=== PATIENT | female | born 1950 | race Caucasian/White ===

== ENCOUNTER 2019-02-23 09:09 | Observation (INO) | payer MEDICARE, BC ==
--- NOTE | 2019-02-23 11:11 | CR ---
[id number] RAD/RAD Chest PA And Lateral EXAM: FRONTAL AND LATERAL CHEST INDICATION: COUGH. COMPARISON: December 25, 2016. DISCUSSION: Mild patchy infiltrates scattered throughout the right lung compatible with pneumonia. Unless clinically indicated sooner, a 6 week follow-up would be suggested to ensure resolution. Left lung is clear and heart is normal in size. IMPRESSION: 1. Mild scattered right lung infiltrates. Casey Perez MD 02/23/19 1109 Thank you for allowing us to participate in the care of your patient.
--- NOTE | 2019-02-23 11:14 | CT ---
[id number] CT/CT Head WO IV EXAM: CT Head WO IV CLINICAL DATA: SYNCOPE. COMPARISON STUDY: None FINDINGS: No intracranial hemorrhage, extra-axial fluid collection, mass, or acute ischemia. Generalized parenchymal atrophy with scattered areas of nonspecific white matter disease, commonly seen as sequela of chronic microvascular ischemia. Soft tissues are unremarkable. Paranasal sinuses and mastoid air cells are clear. IMPRESSION: No acute intracranial findings. German Rowland DO 02/23/19 1112 Thank you for allowing us to participate in the care of your patient.
[2019-02-23 12:04] LABS: ANION GAP 12.4 mmol/L (5-15)
[2019-02-23] MEDS ORDERED: Lidocaine 2% 100 MG/5 ML Syringe IVPUSH PRN (14:09)
[2019-02-23] MEDS ORDERED: EPINEPHrine 1:10,000 1 MG/10 ML Syringe IVPUSH PRN (14:09)
[2019-02-23] MEDS ORDERED: Nitroglycerin 0.4 MG Tab.SL SL PRN (14:09)
[2019-02-23] MEDS ORDERED: Atropine 0.1 MG/ML 10 ML Syringe IVPUSH PRN (14:09)
[2019-02-23] MEDS ORDERED: Sodium Chloride 0.9% 10 ML Syringe FLUSH PRN (14:24)
[2019-02-23] MEDS ORDERED: Sodium Chloride 0.9% 50 ML IV SCH (14:30)
[2019-02-23] MEDS: cefTRIAXone 1 GM Vial IVPUSH SCH (15:25)
[2019-02-23] MEDS: Sodium Chloride 0.9% 1,000 ML IV SCH (15:27)
[2019-02-23] MEDS: Azithromycin 500 MG in Sodium Chloride 0.9% 250 ML IV SCH (15:35)
[2019-02-23] MEDS: Aspirin 325 MG Tab.EC PO SCH (20:14)
[2019-02-24] MEDS: Sodium Chloride 0.9% 1,000 ML IV SCH ×2 (04:57→20:24)
--- NOTE | 2019-02-24 13:13 | US ---
[id number] US/US Carotid Bilateral EXAM: US Carotid Bilateral CLINICAL DATA: Syncope COMPARISON: Correlation is made with the exam of June 04, 2017 FINDINGS: The internal to common carotid ratio on the right is 1.0. The internal to common carotid ratio on the left is 1.5. Vertebral flow on both sides is antegrade. Peak systolic velocity of the right internal carotid artery is 75 cm/s. Peak systolic velocity of the left internal carotid artery is 70 cm/s. Plaque is seen bilaterally IMPRESSION: NO SIGNIFICANT NARROWING ON EITHER SIDE. BILATERAL PLAQUE Hugh Gusman MD 02/24/19 1505 Thank you for allowing us to participate in the care of your patient.
[2019-02-24] MEDS: cefTRIAXone 1 GM Vial IVPUSH SCH (14:35)
[2019-02-24] MEDS: Azithromycin 500 MG in Sodium Chloride 0.9% 250 ML IV SCH (14:43)
[2019-02-24] MEDS: Aspirin 325 MG Tab.EC PO SCH (20:07)
[2019-02-25] MEDS: cefTRIAXone 1 GM Vial IVPUSH SCH ×2 (11:46→14:15)
[2019-02-25] MEDS: Azithromycin 500 MG in Sodium Chloride 0.9% 250 ML IV SCH ×2 (11:48→14:16)
--- NOTE | 2019-02-26 08:38 | PN ---
02/24/2019 PATIENT NAME: KIESHA SMITH SUBJECTIVE: This is a 68-year-old female who was admitted to the hospital yesterday 02/23/2019 following a syncopal episode. The patient has had a cough for the past month. Yesterday morning, she took a dose of her 's cough medicine with codeine an hour and half later, had a syncopal episode where she actually lost control of her bowel and was incontinent of stool. The patient was admitted for further observation and diagnostic workup. She was found to have scattered right lung infiltrates. She is being covered with azithromycin as well as ceftriaxone for community-acquired pneumonia. Lab work including CBC and a CMP were drawn with all values fairly normal. Nothing outstandingly abnormal. The white count was normal. Her hemoglobin was normal at 13.5. The chemistry panel was completely acceptable. A 12-lead EKG was performed, which shows a normal sinus rhythm with a possible left posterior fascicular block. Ventricular rate is 78 beats per minute. Good R-wave progression through the precordial leads. No ectopics. There are no acute ST-T wave changes. CT of the head was performed which showed no intracranial hemorrhage, extra- axial fluid collection, mass, or acute ischemia. The general parenchymal atrophy with scattered areas of nonspecific white matter disease, commonly seen as sequela of chronic microvascular ischemia. Soft tissues are unremarkable. Paranasal sinuses and mastoid air cells are clear. There was no acute intracranial findings found on the CT scan. The patient is being treated with intravenous fluids of normal saline at 75 mL an hour. She is feeling well. We do plan to keep her 1 more day for observation and another day of intravenous IV antibiotics. OBJECTIVE: VITAL SIGNS: Temp is 97.8, pulse is 76, respirations 16, blood pressure 118/80, oxygen saturation is 95% on room air. SKIN: Warm and dry to touch. CARDIAC: Reveals S1, S2 to be normal. Rate and rhythm are regular. No murmur, click, or gallop is auscultated. LUNGS: Some scattered rhonchi and rales with expiratory wheezing, which is mild. ABDOMEN: Soft, nontender. Bowel sounds present in all 4 quadrants. EXTREMITIES: There is no pedal edema. IMPRESSION: 1. Diffuse scattered right lower lobe infiltrates consistent with community- acquired pneumonia. She will continue on IV ceftriaxone as well as azithromycin as recommended per CAP guidelines. She will also continue on intravenous fluids. 2. No labs were performed today due to the fact that they were all normal yesterday with low clinical suspicion of any changes today. 3. Syncopal episode with bowel incontinence. This etiology is still fairly unclear to me, although it may be secondary to weakness that she was experiencing from her pneumonia. I will get a carotid ultrasound scheduled for today with results pending. She will have an echocardiogram tomorrow morning. PLAN: To discharge her from the hospital tomorrow to home with continuation of oral antibiotics for a total of 10 days. The patient is agreeable with this plan of care and wishes to proceed. The patient is normally in good general health with only taken aspirin at home. /[id number]/MODL
== END 2019-02-25 15:41 | disposition home or self-care (01) ==
LOC: KA.MS 09:09
DX: R91.8 Other nonspecific abnormal finding of lung field (principal); R55 Syncope and collapse; R15.9 Full incontinence of feces; J06.9 Acute upper respiratory infection, unspecified; Z79.82 Long term (current) use of aspirin
CPT/HCPCS: 70450; 71046; 80053; 84443; 85025; 87040; 93005; 93306; 93880; 96361; 96365; 96366; 96375; 96376; A9270-GY; G0378; J0456; J0696; J7030; J7050

== ENCOUNTER 2019-10-04 14:19 | Observation (INO) | payer MEDICARE, BC ==
[2019-10-04 15:04] LABS: ANION GAP 14.7 mmol/L (5-15); CHLORIDE,CL 102 mmol/L (98-115); SODIUM,NA 140 mmol/L (136-145)
--- NOTE | 2019-10-04 15:18 | CR ---
[id number] RAD/RAD Chest PA And Lateral EXAM: RAD Chest PA And Lateral INDICATION: EPIGASTRIC PAIN. COMPARISON: February 23, 2019. DISCUSSION: Cardiomediastinal silhouette is normal in size and contour. No infiltrate, effusion, pneumothorax, or edema. Pulmonary hyperinflation. IMPRESSION: No acute cardiopulmonary abnormality. German Rowland DO 10/04/19 1517 Thank you for allowing us to participate in the care of your patient.
[2019-10-04] MEDS ORDERED: Sodium Chloride 0.9% 10 ML Syringe FLUSH PRN (16:35)
[2019-10-04] MEDS ORDERED: Atropine 0.1 MG/ML 10 ML Syringe IVPUSH PRN (16:44)
[2019-10-04] MEDS ORDERED: Nitroglycerin 0.4 MG Tab.SL SL PRN (16:44)
[2019-10-04] MEDS ORDERED: Lidocaine 2% 100 MG/5 ML Syringe IVPUSH PRN (16:44)
[2019-10-04] MEDS ORDERED: EPINEPHrine 1:10,000 1 MG/10 ML Syringe IVPUSH PRN (16:44)
[2019-10-05] MEDS: Omeprazole 20 MG Cap.CR PO SCH ×2 (07:41→09:25)
[2019-10-05] MEDS ORDERED: Aspirin 325 MG Tab.EC PO SCH (09:00)
--- NOTE | 2019-10-06 21:01 | DISCH ---
BRIEF SUMMARY OF REASON FOR ADMISSION: This is a 69-year-old female who was admitted to the hospital on 10/04/2019 with epigastric pain to rule out OH. Her initial troponin I in the clinic was 0.08. When it was repeated, it was 0.07. Serial Troponins have been 0.07 and 0.06 respectively. Her EKG did not show any acute changes; however, she was tachycardic with a ventricular rate of 102. Chest x-ray was normal. The remainder of her lab work was fairly unremarkable. Amylase and lipase were normal. The patient has been comfortable while she has been in the hospital. She is anxious to go home. I have her scheduled for an upper GI endoscopy (esophagogastroduodenoscopy) on October 12, [address] Negro Ryan. PHYSICAL EXAM ON DISCHARGE: VITAL SIGNS: Temp is 96.9, pulse 103, respirations 18, blood pressure 128/84, and O2 saturation is 96%. SKIN: Warm and dry to touch. CARDIAC: Reveals S1, S2 to be normal. Rate and rhythm are regular. No murmur, click, or gallop is auscultated. LUNGS: Clear without rales, wheezes, or rhonchi. ABDOMEN: Soft. She does have some mild epigastric discomfort. Bowel sounds are present in all four quadrants. EXTREMITIES: There is no pedal edema. IMPRESSION: Epigastric pain with elevated initial troponin. She did rule out for OH in the hospital. She may need further cardiac workup. In the meantime, we will get an esophagogastroduodenoscopy on October 12, [address] with Dr. Negro Ryan. She was instructed to continue her aspirin therapy. She takes an aspirin 325 mg daily. She was also advised to take omeprazole 20 mg daily on a regular basis. Up until this point, she has been using it on a p.r.n. basis. /[id number]/MODL
== END 2019-10-05 09:29 | disposition home or self-care (01) ==
LOC: KA.OC 14:19 → KA.MS 16:41
DX: R10.13 Epigastric pain (principal); K21.9 Gastro-esophageal reflux disease without esophagitis; R79.89 Other specified abnormal findings of blood chemistry; Z79.82 Long term (current) use of aspirin; Z79.899 Other long term (current) drug therapy; Z91.09 Other allergy status, other than to drugs and biological substances; Z20.828 Contact with and (suspected) exposure to other viral communicable diseases
CPT/HCPCS: 36415; 71046; 80053; 82150; 83690; 84484; 85025; 93005; A9270-GY; G0378; U0002

== ENCOUNTER 2019-10-26 06:51 | Day surgery (SDC) | payer MEDICARE, BC ==
[~2019-10-26 06:51] MED LIST: Propofol 200 MG/20 ML SDV ONE
[2019-10-26] MEDS ORDERED: Propofol 200 MG/20 ML SDV IV ONE (06:52)
[2019-10-26] MEDS ORDERED: Sodium Chloride 0.9% 10 ML Syringe FLUSH PRN (07:00)
[2019-10-26] MEDS: Lactated Ringers 1,000 ML IV SCH (07:49)
--- NOTE | 2019-10-26 08:17 | PCM.PN ---
- General Info Date of Service: 10/26/19 - Review of Systems Systems Review Comment:: 69-year-old female referred for EGD. She has a history of recurring episodes of nausea. She also has a history of symptoms of acid reflux. She denies symptoms of dysphasia. She has been intermittently taking omeprazole. The patient is medically stable to proceed today. Her recent history and physical is reviewed and no significant changes are noted. I have discussed the proposed upper endoscopy with the patient. She agrees to proceed excepting risks. - Patient Data Vitals - Most Recent: Last Vital Signs Temp Pulse 85 10/26/19 07:00 Resp 16 10/26/19 07:00 BP 158/91 H 10/26/19 07:00 Pulse Ox 98 10/26/19 07:00 Weight - Most Recent: 73.936 kg Med Orders - Current: Current Medications Lactated Ringer's (Ringers, Lactated) 1,000 mls @ 50 mls/hr IV ASDIRECTED [facility] Last Admin: 10/26/19 07:49 Dose: 50 mls/hr Documented by: Sodium Chloride (Saline Flush) 10 ml FLUSH Q8HR PRN PRN Reason: keep vein open Discontinued Medications Propofol (Diprivan 20 Ml) Confirm Administered Dose 400 mg .ROUTE .STK-MED ONE Stop: 10/26/19 06:28 Sepsis Event Note - Focused Exam Vital Signs: Vital Signs Pulse Resp BP Pulse Ox 10/26/19 07:00 85 16 158/91 H 98 Date Exam was Performed: 10/26/19 Time Exam was Performed: 08:15 - Problem List Review Problem List Initiated/Reviewed/Updated: Yes - My Orders Last 24 Hours: My Active Orders 10/25/19 11:47 Resuscitation Status Routine 10/26/19 07:00 Peripheral IV Care [RC] . DIRECTED Lactated Ringers [Ringers, Lactated] 1,000 ml IV ASDIRECTED Sodium Chloride 0.9% [Saline Flush] 10 ml FLUSH Q8HR PRN Peripheral IV Insertion Adult [OM.PC] Routine 10/26/19 07:30 Patient to Empty Bladder [RC] ASDIRECTED 10/26/19 08:00 Verify Patient Consent Obtain [RC] ASDIRECTED Nothing Per Oral Diet [DIET] - Assessment Assessment:: Nausea Acid reflux - Plan Plan:: EGD
--- NOTE | 2019-10-26 08:52 | PCM.OPNOTE ---
- General Post-Op/Procedure Note Date of Surgery/Procedure: 10/26/19 Operative Procedure(s): EGD with Biopsy Findings: Hiatal Hernia with reflux esophagitis and possible Murguia's Esophagus Pre Op Diagnosis: Nausea. Acid Reflux Post-Op Diagnosis: Hiatal Hernia. Reflux Esophagitis Anesthesia Technique: [facility] [place] Surgeon: Negro Ryan Pathology: Biopsies of Gastric Antrum and Distal Esophagus EBL in mLs: 3 Complications: None Condition: Good
--- NOTE | 2019-10-26 11:53 | OR ---
DATE OF SURGERY: 10/26/2019 SURGEON: Negro Ryan MD PREOPERATIVE DIAGNOSIS: Nausea and acid reflux. POSTOPERATIVE DIAGNOSIS: Hiatal hernia with reflux esophagitis. OPERATION PERFORMED: Esophagogastroduodenoscopy with biopsy. INDICATIONS FOR SURGERY: This 69-year-old female has had some intermittent symptoms of unexplained nausea. She also has a longstanding history of acid reflux symptoms. FINDINGS: The patient has a small to moderate-sized hiatal hernia. The Z-line is irregular at 35 cm from the incisors and there is reflux changes in the esophagus for the distal 5 cm. Findings are felt to be grossly consistent with Murguia's esophagus of 4-5 cm in length. No nodularity or stenosis is seen. The lining of the patient's stomach and duodenum otherwise appear normal with no visible inflammation or ulceration. DESCRIPTION OF PROCEDURE: The patient was taken to the operating room. She was given intravenous sedation and with her in the left lateral decubitus position, the Olympus gastroscope was advanced into the oral cavity through a mouth guard. Under direct visualization, it was then advanced through the oropharynx and into the esophagus. The scope was advanced down through the esophagus, stomach, and into the duodenum where examination to the 4th portion was performed. After careful examination of the duodenum was carried out, the scope was withdrawn back into the stomach where full examination including retroflexed examination of the fundus was performed. Random biopsies of the antrum were taken to rule out H pylori because of the patient's symptoms. The GE junction and distal esophagus were then carefully examined. Findings were felt worrisome for possible Murguia's esophagus and so random biopsies are taken at the GE junction and at two levels of the distal esophagus. The examination was then completed and with no sign of any complications, the scope was removed and the patient was taken from the operating room in satisfactory condition. ESTIMATED BLOOD LOSS: 3 mL. COMPLICATIONS: None. PROGNOSIS: Good. /[id number]/MODL
== END 2019-10-26 10:15 | disposition home or self-care (01) ==
LOC: KA.SDS 06:51
PROVIDERS: ATTEND Surgery
DX: K22.70 Barrett's esophagus without dysplasia (principal); K44.9 Diaphragmatic hernia without obstruction or gangrene; K21.0 Gastro-esophageal reflux disease with esophagitis; Z98.890 Other specified postprocedural states; Z90.49 Acquired absence of other specified parts of digestive tract; Z79.82 Long term (current) use of aspirin; Z79.899 Other long term (current) drug therapy
CPT/HCPCS: 00731; J2704; J7120

== ENCOUNTER 2023-01-03 18:38 | Emergency (ER) | payer BC, MEDICARE ==
[2023-01-03] MEDS ORDERED: Diphtheria,Pertussis(Acell),Tetanus Vaccine 0.5 ML Syringe IM ONE (18:39)
== END 2023-01-03 19:14 | disposition home or self-care (01) ==
LOC: KA.ED 18:38
DX: S61.313A Laceration without foreign body of left middle finger with damage to nail, initial encounter (principal); Z23 Encounter for immunization; Z79.82 Long term (current) use of aspirin; Z79.899 Other long term (current) drug therapy; W27.0XXA Contact with workbench tool, initial encounter
CPT/HCPCS: 73140-F2; 90471; 90715; 99283-25